=== PATIENT | male | born 1990 | race Hispanic/Latino ===

== ENCOUNTER 2017-01-05 07:37 | Emergency (ER) | payer MEDICAID, OTHER, SELFPAY ==
[~2017-01-05] VITALS: Ht 170.2 cm; Wt 68.5 kg
[2017-01-05] MEDS ORDERED: KETOROLAC 30 MG/ML VIAL (J1885) IV ONE (08:15)
[2017-01-05] MEDS ORDERED: NS 500 ML IV ONE (08:15)
[2017-01-05] MEDS ORDERED: ONDANSETRON 4MG/2ML VIAL (J2405) IV ONE (08:15)
[2017-01-05 08:37] LABS: BASO % 0.1 % (0.0-1.0); EOS % 0.4 % (0.0-3.0); LARGE UNSTAINED CELL # 0.1 K/mm3 (0.0-0.4); LARGE UNSTAINED CELL % 0.8 % (0.0-4.0); LYMPH # 0.3 K/mm3 (1.5-6.5); LYMPH % 2.6 % (24.0-44.0); MEAN CORPUSCULAR HEMOGLOBIN 29.3 pg (27.0-33.0); MEAN CORPUSCULAR HGB CONC 32.9 g/dl (32.0-36.5); MONO # 0.4 K/mm3 (0.0-0.8); MONO % 4.4 % (0.0-5.0); NEUTROPHILS # 7.2 K/mm3 (1.8-7.7); NEUTROPHILS % 91.7 % (36.0-66.0); PLATELET COUNT, AUTOMATED 157 k/mm3 (150-450); RED CELL DISTRIBUTION WIDTH 13.5 % (11.5-14.5); WHITE BLOOD COUNT 7.9 K/mm3 (4.0-10.0)
[2017-01-05] MEDS ORDERED: GASTROGRAFIN SOLUTION 30ML (Q9963) PO ONE ×2 (08:45→09:15)
[2017-01-05 09:06] LABS: ALBUMIN 4.5 GM/DL (3.2-5.2); ALBUMIN/GLOBULIN RATIO 1.29 (1.00-1.93); ALKALINE PHOSPHATASE 95 U/L (45-117); ALT/SGPT 25 U/L (12-78); AMYLASE 51 U/L (25-115); ANION GAP 4 MEQ/L (8-16); AST/SGOT 24 U/L (15-37); BILIRUBIN,DIRECT 0.3 MG/DL (0.0-0.2); BILIRUBIN,TOTAL 0.9 MG/DL (0.2-1.0); BLOOD UREA NITROGEN 22 MG/DL (7-18); CALCIUM LEVEL 9.2 MG/DL (8.5-10.1); CARBON DIOXIDE LEVEL 30 MEQ/L (21-32); CHLORIDE LEVEL 105 MEQ/L (98-107); CREATININE FOR GFR 1.05 MG/DL (0.70-1.30); GLOMERULAR FILTRATION RATE > 60.0 (>60); GLUCOSE, FASTING 125 MG/DL (70-105); POTASSIUM SERUM 4.8 MEQ/L (3.5-5.1); SODIUM LEVEL 139 MEQ/L (136-145)
[2017-01-05] MEDS ORDERED: ISOVUE-370 76% 100ML VIAL (Q9967) As Ordered ONE ×2 (09:17→09:29)
--- NOTE | 2017-01-05 10:02 | REP ---
Clinical: Diffuse abdominal pain with nausea and vomiting. Technique: Axial contrast enhanced images from the lung bases to the pubic symphysis using oral and 100 ml Isovue 370 intravenous contrast material with coronal and sagittal re-formations. Findings: Lung bases are clear. Visualized heart and pericardium normal. Liver, spleen, pancreas, gallbladder, bilateral adrenal glands and kidneys are normal. The enteric system is without obstruction or acute inflammatory process. Normal appendix identified in the right lower quadrant. Pelvis demonstrates normal bladder and age appropriate prostate/seminal vesicles. No obvious ascites. No free air. No intraperitoneal or retroperitoneal adenopathy. Mass lesion. Vascular structures are normal. Musculoskeletal structures are intact. Impression: Normal contrast enhanced CT of the abdomen and pelvis. Signed by Jaswinder Rodriguez MD 01/05/2017 09:54 A
[2017-01-05] MEDS ORDERED: ZOFR4TAB3 PO (10:05)
[2017-01-05 10:20] VITALS: BP 135/67
== END 2017-01-05 10:22 | disposition home or self-care (01) ==
LOC: M ED 08:44
DX: R10.84 Generalized abdominal pain (principal); R11.2 Nausea with vomiting, unspecified
CPT/HCPCS: 74177; 80048; 80076; 82150; 83690; 85025; 96361; 96374; 96375; 99282; J1885; J2405; Q9963; Q9967

== ENCOUNTER 2017-03-31 00:24 | Emergency (ER) | payer MEDICAID, OTHER ==
[~2017-03-31] VITALS: Ht 170.2 cm; Wt 70.0 kg
[~2017-03-31 00:24] MED LIST: ZOFR4TAB3 PO
[2017-03-31 00:28] VITALS: BP 154/77
[2017-03-31] MEDS ORDERED: POLYSPORIN TOPICAL OINTMENT 15GM As Ordered ONE (02:25)
[2017-03-31] MEDS ORDERED: CLIN1CAP5 PO (02:32)
[2017-03-31] MEDS ORDERED: FLUC150T PO (02:32)
== END 2017-03-31 03:01 | disposition home or self-care (01) ==
LOC: M ED 01:44
DX: B35.3 Tinea pedis (principal)

== ENCOUNTER 2017-05-11 06:01 | Emergency (ER) | payer OTHER ==
[~2017-05-11] VITALS: Ht 170.2 cm; Wt 70.4 kg
[~2017-05-11 06:01] MED LIST changes: +CLIN150C14 PO; +FLUC150T PO
[2017-05-11] MEDS ORDERED: NAPROXEN 250 MG TAB PO ONE (06:45)
--- NOTE | 2017-05-11 07:10 | REP ---
Clinical: Trauma with thoracic pain. Technique: AP, lateral, and swimmers views. Findings: Alignment and kyphosis is maintained. Vertebral bodies intact. No acute fracture / compression injury or subluxation. No degenerative changes. Paravertebral soft tissues are normal. Impression: Normal thoracic spine series. Signed by Jaswinder Rodriguez MD 05/11/2017 07:02 A
[2017-05-11] MEDS ORDERED: ZANA4TAB PO (07:41)
[2017-05-11] MEDS ORDERED: MOBI4TAB PO (07:41)
[2017-05-11 07:57] VITALS: BP 120/72
== END 2017-05-11 08:01 | disposition home or self-care (01) ==
LOC: M ED 06:01
DX: M54.6 Pain in thoracic spine (principal)